=== PATIENT | male | born 1950 | race Caucasian/White ===

== ENCOUNTER → 2018-04-20 07:17 | Outpatient (CLI) | payer BC, SELFPAY ==
[2018-04-20 08:19] LABS: Add Manual Diff / Slide Review NO; Basophils Percent Auto 0.2 % (0-2); Eosinophils Percent Auto 0.2 % (2-4); Hematocrit 37.5 % (41-53); Hemoglobin 13.6 g/dL (13.5-17.5); Lymphocytes Percent Auto 20.6 % (25-40); Mean Corpuscular HGB Conc 36.3 % (30-36); Monocytes Percent Auto 17.6 % (3-14); Neutrophils Absolute Auto 1700 /uL (3000-5900); Neutrophils Percent Auto 61.4 % (50-75); Platelet Count 109 X10^3/uL (150-400); Red Blood Cell Count 4.12 X10^6/uL (4.5-5.9); Red Cell Distribution Width 15.5 % (11.6-14.8); White Blood Cell Count 2.7 X10^3/uL (4.5-11.0)
[2018-04-20 08:53] LABS: Alanine Aminotransferase 26 IU/L (21-72); Albumin 3.9 g/dL (3.5-5.0); Albumin Globulin Ratio 1.4 (1.0-2.8); Alkaline Phosphatase 61 U/L (38-126); Aspartate Aminotransferase 24 IU/L (17-59); BUN Creatinine Ratio 18.9 (6-22); Blood Urea Nitrogen 17 mg/dL (9-20); Calcium 9.2 mg/dL (8.4-10.2); Carbon Dioxide 30 mmol/L (22-32); Chloride 102 mmol/L (98-107); Estimated Glomerular Filt Rate > 60.0 mL/min (>60); Globulin 2.8 g/dL (1.7-4.1); Glucose 94 mg/dL (80-110); HEMOLYSIS < 15 (0-50); Potassium 5.2 mmol/L (3.4-5.1); Sodium 140 mmol/L (137-145); Total Protein 6.7 g/dL (6.3-8.2)
== END ==
PROVIDERS: Family Provider Internal Medicine; PCP Internal Medicine; Visit Provider Internal Medicine Hematology & Oncology
DX: C91.10 Chronic lymphocytic leukemia of B-cell type not having achieved remission (principal)
CPT/HCPCS: 36415; 80053; 85025

== ENCOUNTER → 2018-05-11 06:42 | Outpatient (CLI) | payer BC, SELFPAY ==
[2018-05-11 08:59] LABS: Add Manual Diff / Slide Review NO; Basophils Percent Auto 0.2 % (0-2); Eosinophils Percent Auto 1.5 % (2-4); Hematocrit 38.9 % (41-53); Hemoglobin 13.9 g/dL (13.5-17.5); Lymphocytes Percent Auto 35.5 % (25-40); Mean Corpuscular HGB Conc 35.7 % (30-36); Mean Corpuscular Volume 92.4 fL (80-100); Monocytes Percent Auto 14.6 % (3-14); Neutrophils Absolute Auto 1400 /uL (3000-5900); Neutrophils Percent Auto 48.2 % (50-75); Platelet Count 97 X10^3/uL (150-400); Red Blood Cell Count 4.21 X10^6/uL (4.5-5.9); Red Cell Distribution Width 14.9 % (11.6-14.8); White Blood Cell Count 2.8 X10^3/uL (4.5-11.0)
[2018-05-11 09:38] LABS: Alanine Aminotransferase 21 IU/L (21-72); Albumin 4.1 g/dL (3.5-5.0); Albumin Globulin Ratio 1.3 (1.0-2.8); Alkaline Phosphatase 68 U/L (38-126); Aspartate Aminotransferase 27 IU/L (17-59); Bilirubin Total 0.7 mg/dL (0.2-1.3); Blood Urea Nitrogen 18 mg/dL (9-20); Calcium 8.9 mg/dL (8.4-10.2); Carbon Dioxide 27 mmol/L (22-32); Chloride 102 mmol/L (98-107); Estimated Glomerular Filt Rate > 60.0 mL/min (>60); Globulin 3.1 g/dL (1.7-4.1); Glucose 92 mg/dL (80-110); HEMOLYSIS < 15 (0-50); Potassium 4.3 mmol/L (3.4-5.1); Sodium 139 mmol/L (137-145); Total Protein 7.2 g/dL (6.3-8.2)
== END ==
PROVIDERS: PCP Internal Medicine; Visit Provider Internal Medicine Hematology & Oncology
DX: C91.10 Chronic lymphocytic leukemia of B-cell type not having achieved remission (principal)
CPT/HCPCS: 36415; 80053; 85025

== ENCOUNTER → 2018-05-18 07:49 | Outpatient (CLI) | payer BC, SELFPAY ==
[2018-05-18 08:15] LABS: Add Manual Diff / Slide Review NO; Basophils Percent Auto 0.3 % (0-2); Eosinophils Percent Auto 1.4 % (2-4); Hematocrit 37.1 % (41-53); Hemoglobin 13.6 g/dL (13.5-17.5); Lymphocytes Percent Auto 36.1 % (25-40); Mean Corpuscular HGB Conc 36.7 % (30-36); Mean Corpuscular Hemoglobin 33.6 PG (26-34); Mean Corpuscular Volume 91.7 fL (80-100); Monocytes Percent Auto 15.8 % (3-14); Neutrophils Absolute Auto 1300 /uL (3000-5900); Neutrophils Percent Auto 46.4 % (50-75); Platelet Count 95 X10^3/uL (150-400); Red Blood Cell Count 4.04 X10^6/uL (4.5-5.9); Red Cell Distribution Width 14.8 % (11.6-14.8); White Blood Cell Count 2.7 X10^3/uL (4.5-11.0)
[2018-05-18 08:56] LABS: Alanine Aminotransferase 19 IU/L (21-72); Albumin 3.9 g/dL (3.5-5.0); Albumin Globulin Ratio 1.1 (1.0-2.8); Alkaline Phosphatase 56 U/L (38-126); Aspartate Aminotransferase 22 IU/L (17-59); BUN Creatinine Ratio 16.7 (6-22); Bilirubin Total 0.8 mg/dL (0.2-1.3); Blood Urea Nitrogen 15 mg/dL (9-20); Carbon Dioxide 27 mmol/L (22-32); Chloride 104 mmol/L (98-107); Estimated Glomerular Filt Rate > 60.0 mL/min (>60); Globulin 3.4 g/dL (1.7-4.1); Glucose 84 mg/dL (80-110); HEMOLYSIS < 15 (0-50); Potassium 4.2 mmol/L (3.4-5.1); Sodium 140 mmol/L (137-145); Total Protein 7.3 g/dL (6.3-8.2)
== END ==
PROVIDERS: PCP Internal Medicine; Visit Provider Internal Medicine Hematology & Oncology
DX: C91.10 Chronic lymphocytic leukemia of B-cell type not having achieved remission (principal)
CPT/HCPCS: 36415; 80053; 85025

== ENCOUNTER → 2018-05-25 07:31 | Outpatient (CLI) | payer BC, SELFPAY ==
[2018-05-25 09:19] LABS: Add Manual Diff / Slide Review NO; Basophils Percent Auto 0.1 % (0-2); Eosinophils Percent Auto 3.2 % (2-4); Hematocrit 37.5 % (41-53); Hemoglobin 13.4 g/dL (13.5-17.5); Mean Corpuscular HGB Conc 35.8 % (30-36); Mean Corpuscular Volume 92.2 fL (80-100); Monocytes Percent Auto 8.7 % (3-14); Neutrophils Absolute Auto 1500 /uL (3000-5900); Platelet Count 113 X10^3/uL (150-400); Red Blood Cell Count 4.07 X10^6/uL (4.5-5.9); Red Cell Distribution Width 14.5 % (11.6-14.8); White Blood Cell Count 2.8 X10^3/uL (4.5-11.0)
[2018-05-25 09:48] LABS: Alanine Aminotransferase 24 IU/L (21-72); Albumin 3.9 g/dL (3.5-5.0); Albumin Globulin Ratio 1.2 (1.0-2.8); Alkaline Phosphatase 65 U/L (38-126); Aspartate Aminotransferase 24 IU/L (17-59); Bilirubin Total 0.7 mg/dL (0.2-1.3); Blood Urea Nitrogen 18 mg/dL (9-20); Calcium 9.1 mg/dL (8.4-10.2); Carbon Dioxide 27 mmol/L (22-32); Chloride 103 mmol/L (98-107); Estimated Glomerular Filt Rate > 60.0 mL/min (>60); Globulin 3.2 g/dL (1.7-4.1); Glucose 89 mg/dL (80-110); HEMOLYSIS < 15 (0-50); Potassium 4.8 mmol/L (3.4-5.1); Sodium 140 mmol/L (137-145); Total Protein 7.1 g/dL (6.3-8.2)
== END ==
PROVIDERS: Family Provider Internal Medicine; PCP Internal Medicine; Visit Provider Internal Medicine Hematology & Oncology
DX: C91.10 Chronic lymphocytic leukemia of B-cell type not having achieved remission (principal)
CPT/HCPCS: 36415; 80053; 85025

== ENCOUNTER → 2018-06-22 06:54 | Outpatient (CLI) | payer BC, SELFPAY ==
[2018-06-22 07:43] LABS: Add Manual Diff / Slide Review NO; Basophils Percent Auto 0.2 % (0-2); Eosinophils Percent Auto 0.5 % (2-4); Hemoglobin 13.6 g/dL (13.5-17.5); Lymphocytes Percent Auto 38.6 % (25-40); Mean Corpuscular HGB Conc 35.9 % (30-36); Mean Corpuscular Hemoglobin 33.5 PG (26-34); Mean Corpuscular Volume 93.3 fL (80-100); Monocytes Percent Auto 12.7 % (3-14); Neutrophils Absolute Auto 1300 /uL (3000-5900); Platelet Count 109 X10^3/uL (150-400); Red Blood Cell Count 4.07 X10^6/uL (4.5-5.9); Red Cell Distribution Width 14.9 % (11.6-14.8); White Blood Cell Count 2.8 X10^3/uL (4.5-11.0)
[2018-06-22 07:53] LABS: Alanine Aminotransferase 23 IU/L (21-72); Albumin Globulin Ratio 1.6 (1.0-2.8); Alkaline Phosphatase 72 U/L (38-126); Aspartate Aminotransferase 24 IU/L (17-59); Bilirubin Total 0.5 mg/dL (0.2-1.3); Blood Urea Nitrogen 19 mg/dL (9-20); Carbon Dioxide 29 mmol/L (22-32); Chloride 102 mmol/L (98-107); Estimated Glomerular Filt Rate > 60.0 mL/min (>60); Globulin 2.5 g/dL (1.7-4.1); Glucose 80 mg/dL (80-110); HEMOLYSIS < 15 (0-50); Potassium 4.7 mmol/L (3.4-5.1); Sodium 140 mmol/L (137-145); Total Protein 6.5 g/dL (6.3-8.2)
== END ==
PROVIDERS: Family Provider Internal Medicine; PCP Internal Medicine; Visit Provider Internal Medicine Hematology & Oncology
DX: C91.10 Chronic lymphocytic leukemia of B-cell type not having achieved remission (principal)
CPT/HCPCS: 36415; 80053; 85025

== ENCOUNTER → 2018-06-29 07:08 | Outpatient (CLI) | payer BC, SELFPAY ==
[2018-06-29 08:00] LABS: Add Manual Diff / Slide Review NO; Basophils Percent Auto 0.3 % (0-2); Hematocrit 38.1 % (41-53); Hemoglobin 13.9 g/dL (13.5-17.5); Lymphocytes Percent Auto 13.6 % (25-40); Mean Corpuscular HGB Conc 36.5 % (30-36); Mean Corpuscular Hemoglobin 33.7 PG (26-34); Mean Corpuscular Volume 92.2 fL (80-100); Monocytes Percent Auto 14.1 % (3-14); Neutrophils Absolute Auto 5700 /uL (3000-5900); Platelet Count 100 X10^3/uL (150-400); Red Blood Cell Count 4.13 X10^6/uL (4.5-5.9)
[2018-06-29 08:37] LABS: Alanine Aminotransferase 18 IU/L (21-72); Albumin 3.8 g/dL (3.5-5.0); Albumin Globulin Ratio 1.2 (1.0-2.8); Alkaline Phosphatase 55 U/L (38-126); Aspartate Aminotransferase 16 IU/L (17-59); Bilirubin Total 0.5 mg/dL (0.2-1.3); Blood Urea Nitrogen 15 mg/dL (9-20); Calcium 8.9 mg/dL (8.4-10.2); Carbon Dioxide 29 mmol/L (22-32); Chloride 102 mmol/L (98-107); Estimated Glomerular Filt Rate > 60.0 mL/min (>60); Globulin 3.1 g/dL (1.7-4.1); Glucose 92 mg/dL (80-110); HEMOLYSIS < 15 (0-50); Potassium 4.4 mmol/L (3.4-5.1); Sodium 138 mmol/L (137-145); Total Protein 6.9 g/dL (6.3-8.2)
== END ==
PROVIDERS: Family Provider Internal Medicine; PCP Internal Medicine; Visit Provider Internal Medicine Hematology & Oncology
DX: C91.10 Chronic lymphocytic leukemia of B-cell type not having achieved remission (principal)
CPT/HCPCS: 36415; 80053; 85025

== ENCOUNTER → 2018-07-06 08:34 | Outpatient (CLI) | payer BC, SELFPAY ==
[2018-07-06 09:58] LABS: Add Manual Diff / Slide Review NO; Basophils Percent Auto 0.2 % (0-2); Hematocrit 37.5 % (41-53); Hemoglobin 13.4 g/dL (13.5-17.5); Lymphocytes Percent Auto 22.5 % (25-40); Mean Corpuscular HGB Conc 35.9 % (30-36); Mean Corpuscular Hemoglobin 33.5 PG (26-34); Mean Corpuscular Volume 93.5 fL (80-100); Monocytes Percent Auto 8.2 % (3-14); Neutrophils Absolute Auto 3100 /uL (3000-5900); Neutrophils Percent Auto 68.1 % (50-75); Platelet Count 126 X10^3/uL (150-400); Red Blood Cell Count 4.01 X10^6/uL (4.5-5.9); White Blood Cell Count 4.6 X10^3/uL (4.5-11.0)
[2018-07-06 10:25] LABS: Alanine Aminotransferase 25 IU/L (21-72); Albumin 3.9 g/dL (3.5-5.0); Albumin Globulin Ratio 1.4 (1.0-2.8); Alkaline Phosphatase 62 U/L (38-126); Aspartate Aminotransferase 28 IU/L (17-59); Bilirubin Total 1.1 mg/dL (0.2-1.3); Blood Urea Nitrogen 17 mg/dL (9-20); Carbon Dioxide 27 mmol/L (22-32); Chloride 101 mmol/L (98-107); Estimated Glomerular Filt Rate > 60.0 mL/min (>60); Globulin 2.8 g/dL (1.7-4.1); Glucose 80 mg/dL (80-110); HEMOLYSIS < 15 (0-50); Potassium 4.3 mmol/L (3.4-5.1); Sodium 140 mmol/L (137-145); Total Protein 6.7 g/dL (6.3-8.2)
== END ==
PROVIDERS: Family Provider Internal Medicine; PCP Internal Medicine; Visit Provider Internal Medicine Hematology & Oncology
DX: C91.10 Chronic lymphocytic leukemia of B-cell type not having achieved remission (principal)
CPT/HCPCS: 36415; 80053; 85025

== ENCOUNTER → 2018-07-14 09:04 | Outpatient (CLI) | payer BC, SELFPAY ==
[2018-07-14 11:13] LABS: Add Manual Diff / Slide Review NO; Basophils Percent Auto 0.2 % (0-2); Eosinophils Percent Auto 0.8 % (2-4); Hematocrit 38.1 % (41-53); Hemoglobin 13.6 g/dL (13.5-17.5); Lymphocytes Percent Auto 26.7 % (25-40); Mean Corpuscular HGB Conc 35.7 % (30-36); Mean Corpuscular Hemoglobin 33.3 PG (26-34); Mean Corpuscular Volume 93.3 fL (80-100); Neutrophils Absolute Auto 2000 /uL (3000-5900); Neutrophils Percent Auto 62.3 % (50-75); Platelet Count 119 X10^3/uL (150-400); Red Blood Cell Count 4.08 X10^6/uL (4.5-5.9); Red Cell Distribution Width 15.4 % (11.6-14.8); White Blood Cell Count 3.1 X10^3/uL (4.5-11.0)
[2018-07-14 11:40] LABS: Alanine Aminotransferase 26 IU/L (21-72); Albumin 4.1 g/dL (3.5-5.0); Albumin Globulin Ratio 1.6 (1.0-2.8); Alkaline Phosphatase 61 U/L (38-126); Aspartate Aminotransferase 30 IU/L (17-59); BUN Creatinine Ratio 13.6 (6-22); Bilirubin Total 0.8 mg/dL (0.2-1.3); Blood Urea Nitrogen 15 mg/dL (9-20); Calcium 9.2 mg/dL (8.4-10.2); Carbon Dioxide 30 mmol/L (22-32); Chloride 104 mmol/L (98-107); Estimated Glomerular Filt Rate > 60.0 mL/min (>60); Globulin 2.5 g/dL (1.7-4.1); Glucose 85 mg/dL (80-110); HEMOLYSIS < 15 (0-50); Potassium 4.7 mmol/L (3.4-5.1); Sodium 143 mmol/L (137-145); Total Protein 6.6 g/dL (6.3-8.2)
== END ==
PROVIDERS: Family Provider Internal Medicine; PCP Internal Medicine; Visit Provider Internal Medicine Hematology & Oncology
DX: C91.10 Chronic lymphocytic leukemia of B-cell type not having achieved remission (principal)
CPT/HCPCS: 36415; 80053; 85025

== ENCOUNTER → 2018-08-03 07:37 | Outpatient (CLI) | payer BC, SELFPAY ==
[2018-08-03 09:02] LABS: Add Manual Diff / Slide Review NO; Basophils Percent Auto 0.2 % (0-2); Eosinophils Percent Auto 0.7 % (2-4); Hematocrit 39.5 % (41-53); Hemoglobin 14.1 g/dL (13.5-17.5); Lymphocytes Percent Auto 31.9 % (25-40); Mean Corpuscular HGB Conc 35.7 % (30-36); Mean Corpuscular Hemoglobin 33.3 PG (26-34); Mean Corpuscular Volume 93.2 fL (80-100); Neutrophils Absolute Auto 1800 /uL (3000-5900); Neutrophils Percent Auto 56.2 % (50-75); Platelet Count 109 X10^3/uL (150-400); Red Blood Cell Count 4.24 X10^6/uL (4.5-5.9); Red Cell Distribution Width 14.7 % (11.6-14.8); White Blood Cell Count 3.3 X10^3/uL (4.5-11.0)
[2018-08-03 09:06] LABS: Alanine Aminotransferase 19 IU/L (21-72); Albumin 4.3 g/dL (3.5-5.0); Albumin Globulin Ratio 1.6 (1.0-2.8); Alkaline Phosphatase 56 U/L (38-126); Aspartate Aminotransferase 28 IU/L (17-59); Bilirubin Total 0.9 mg/dL (0.2-1.3); Blood Urea Nitrogen 16 mg/dL (9-20); Calcium 9.3 mg/dL (8.4-10.2); Carbon Dioxide 29 mmol/L (22-32); Chloride 104 mmol/L (98-107); Estimated Glomerular Filt Rate > 60.0 mL/min (>60); Globulin 2.7 g/dL (1.7-4.1); Glucose 104 mg/dL (80-110); HEMOLYSIS < 15 (0-50); Potassium 4.8 mmol/L (3.4-5.1); Sodium 142 mmol/L (137-145)
== END ==
PROVIDERS: PCP Internal Medicine; Visit Provider Internal Medicine Hematology & Oncology
DX: C91.10 Chronic lymphocytic leukemia of B-cell type not having achieved remission (principal)
CPT/HCPCS: 36415; 80053; 85025

== ENCOUNTER → 2018-08-21 10:10 | Outpatient (CLI) | payer BC, SELFPAY ==
[2018-08-21 10:43] LABS: Add Manual Diff / Slide Review NO; Basophils Percent Auto 0.2 % (0-2); Eosinophils Percent Auto 0.4 % (2-4); Hematocrit 37.3 % (41-53); Hemoglobin 13.4 g/dL (13.5-17.5); Lymphocytes Percent Auto 31.5 % (25-40); Mean Corpuscular HGB Conc 35.8 % (30-36); Mean Corpuscular Hemoglobin 33.3 PG (26-34); Mean Corpuscular Volume 92.9 fL (80-100); Monocytes Percent Auto 9.1 % (3-14); Neutrophils Absolute Auto 2200 /uL (3000-5900); Neutrophils Percent Auto 58.8 % (50-75); Platelet Count 110 X10^3/uL (150-400); Red Blood Cell Count 4.02 X10^6/uL (4.5-5.9); Red Cell Distribution Width 14.8 % (11.6-14.8); White Blood Cell Count 3.8 X10^3/uL (4.5-11.0)
[2018-08-21 11:01] LABS: Alanine Aminotransferase 25 IU/L (21-72); Albumin 4.2 g/dL (3.5-5.0); Albumin Globulin Ratio 1.5 (1.0-2.8); Alkaline Phosphatase 58 U/L (38-126); Aspartate Aminotransferase 34 IU/L (17-59); BUN Creatinine Ratio 18.9 (6-22); Bilirubin Total 0.8 mg/dL (0.2-1.3); Blood Urea Nitrogen 17 mg/dL (9-20); Calcium 9.1 mg/dL (8.4-10.2); Carbon Dioxide 26 mmol/L (22-32); Chloride 103 mmol/L (98-107); Estimated Glomerular Filt Rate > 60.0 mL/min (>60); Globulin 2.8 g/dL (1.7-4.1); Glucose 88 mg/dL (80-110); HEMOLYSIS < 15 (0-50); Potassium 4.6 mmol/L (3.4-5.1); Sodium 138 mmol/L (137-145)
== END ==
PROVIDERS: Family Provider Internal Medicine; PCP Internal Medicine; Visit Provider Internal Medicine Hematology & Oncology
DX: C91.10 Chronic lymphocytic leukemia of B-cell type not having achieved remission (principal)
CPT/HCPCS: 36415; 80053; 85025

== ENCOUNTER → 2018-09-21 09:33 | Outpatient (CLI) | payer BC, SELFPAY ==
[2018-09-21 10:05] LABS: Add Manual Diff / Slide Review NO; Basophils Percent Auto 0.3 % (0-2); Eosinophils Percent Auto 0.9 % (2-4); Hematocrit 38.1 % (41-53); Hemoglobin 13.7 g/dL (13.5-17.5); Lymphocytes Percent Auto 25.1 % (25-40); Monocytes Percent Auto 13.5 % (3-14); Neutrophils Absolute Auto 2800 /uL (3000-5900); Neutrophils Percent Auto 60.2 % (50-75); Platelet Count 125 X10^3/uL (150-400); Red Blood Cell Count 4.07 X10^6/uL (4.5-5.9); White Blood Cell Count 4.6 X10^3/uL (4.5-11.0)
[2018-09-21 10:15] LABS: Alanine Aminotransferase 24 IU/L (21-72); Albumin 4.4 g/dL (3.5-5.0); Albumin Globulin Ratio 1.6 (1.0-2.8); Alkaline Phosphatase 68 U/L (38-126); Aspartate Aminotransferase 27 IU/L (17-59); BUN Creatinine Ratio 18.9 (6-22); Bilirubin Total 0.9 mg/dL (0.2-1.3); Blood Urea Nitrogen 17 mg/dL (9-20); Calcium 9.3 mg/dL (8.4-10.2); Carbon Dioxide 28 mmol/L (22-32); Chloride 102 mmol/L (98-107); Estimated Glomerular Filt Rate > 60.0 mL/min (>60); Globulin 2.7 g/dL (1.7-4.1); Glucose 97 mg/dL (80-110); HEMOLYSIS < 15 (0-50); Potassium 4.4 mmol/L (3.4-5.1); Sodium 142 mmol/L (137-145); Total Protein 7.1 g/dL (6.3-8.2)
[2018-09-21 10:50] LABS: Mean Corpuscular HGB Conc 35.3 % (30-36); Mean Corpuscular Hemoglobin 33.2 PG (26-34); Mean Corpuscular Volume 94.1 fL (80-100); Red Cell Distribution Width 15.4 % (11.6-14.8)
== END ==
PROVIDERS: Family Provider Internal Medicine; PCP Internal Medicine; Visit Provider Internal Medicine Hematology & Oncology
DX: C91.10 Chronic lymphocytic leukemia of B-cell type not having achieved remission (principal)
CPT/HCPCS: 36415; 80053; 85025

== ENCOUNTER → 2018-10-14 07:37 | Outpatient (CLI) | payer BC, SELFPAY ==
[2018-10-14 09:59] LABS: Add Manual Diff / Slide Review NO; Basophils Percent Auto 0.1 % (0-2); Hemoglobin 13.7 g/dL (13.5-17.5); Lymphocytes Percent Auto 28.2 % (25-40); Mean Corpuscular HGB Conc 36.1 % (30-36); Mean Corpuscular Hemoglobin 33.3 PG (26-34); Mean Corpuscular Volume 92.2 fL (80-100); Monocytes Percent Auto 11.3 % (3-14); Neutrophils Absolute Auto 2900 /uL (3000-5900); Neutrophils Percent Auto 58.4 % (50-75); Platelet Count 128 X10^3/uL (150-400); Red Blood Cell Count 4.13 X10^6/uL (4.5-5.9); Red Cell Distribution Width 14.1 % (11.6-14.8); White Blood Cell Count 4.9 X10^3/uL (4.5-11.0)
[2018-10-14 10:19] LABS: Alanine Aminotransferase 26 IU/L (21-72); Albumin 4.3 g/dL (3.5-5.0); Albumin Globulin Ratio 1.6 (1.0-2.8); Alkaline Phosphatase 74 U/L (38-126); Aspartate Aminotransferase 26 IU/L (17-59); BUN Creatinine Ratio 18.9 (6-22); Bilirubin Total 0.8 mg/dL (0.2-1.3); Blood Urea Nitrogen 17 mg/dL (9-20); Calcium 8.9 mg/dL (8.4-10.2); Carbon Dioxide 27 mmol/L (22-32); Chloride 102 mmol/L (98-107); Estimated Glomerular Filt Rate > 60.0 mL/min (>60); Globulin 2.7 g/dL (1.7-4.1); Glucose 83 mg/dL (80-110); HEMOLYSIS < 15 (0-50); Sodium 141 mmol/L (137-145)
== END ==
PROVIDERS: Family Provider Internal Medicine; PCP Internal Medicine; Visit Provider Internal Medicine Hematology & Oncology
DX: C91.10 Chronic lymphocytic leukemia of B-cell type not having achieved remission (principal)
CPT/HCPCS: 36415; 80053; 85025

== ENCOUNTER → 2018-10-28 16:24 | Outpatient (CLI) | payer BC, SELFPAY ==
[2018-10-28 17:06] LABS: Add Manual Diff / Slide Review NO; Basophils Percent Auto 0.2 % (0-2); Hematocrit 36.6 % (41-53); Lymphocytes Percent Auto 30.5 % (25-40); Mean Corpuscular HGB Conc 35.6 % (30-36); Mean Corpuscular Hemoglobin 32.9 PG (26-34); Mean Corpuscular Volume 92.3 fL (80-100); Monocytes Percent Auto 12.3 % (3-14); Neutrophils Absolute Auto 1900 /uL (3000-5900); Platelet Count 135 X10^3/uL (150-400); Red Blood Cell Count 3.96 X10^6/uL (4.5-5.9); White Blood Cell Count 3.4 X10^3/uL (4.5-11.0)
[2018-10-28 17:29] LABS: Alanine Aminotransferase 21 IU/L (21-72); Albumin 4.2 g/dL (3.5-5.0); Albumin Globulin Ratio 1.6 (1.0-2.8); Alkaline Phosphatase 76 U/L (38-126); Aspartate Aminotransferase 22 IU/L (17-59); Bilirubin Total 0.5 mg/dL (0.2-1.3); Blood Urea Nitrogen 18 mg/dL (9-20); Calcium 9.1 mg/dL (8.4-10.2); Carbon Dioxide 28 mmol/L (22-32); Chloride 102 mmol/L (98-107); Estimated Glomerular Filt Rate > 60.0 mL/min (>60); Globulin 2.7 g/dL (1.7-4.1); Glucose 83 mg/dL (80-110); HEMOLYSIS < 15 (0-50); Potassium 4.3 mmol/L (3.4-5.1); Sodium 140 mmol/L (137-145); Total Protein 6.9 g/dL (6.3-8.2)
== END ==
PROVIDERS: Family Provider Internal Medicine; PCP Internal Medicine; Visit Provider Internal Medicine Hematology & Oncology
DX: C91.10 Chronic lymphocytic leukemia of B-cell type not having achieved remission (principal); C80.1 Malignant (primary) neoplasm, unspecified; D64.9 Anemia, unspecified
CPT/HCPCS: 36415; 80053; 85025

== ENCOUNTER → 2018-12-29 07:39 | Outpatient (CLI) | payer BC, SELFPAY ==
[2018-12-29 10:56] LABS: Add Manual Diff / Slide Review NO; Basophils Absolute Auto 0 /uL (0-100); Basophils Percent Auto 0.7 % (0-2); Eosinophils Absolute Auto 0 /uL (0-450); Eosinophils Percent Auto 0.5 % (2-4); Hematocrit 39.1 % (41-53); Hemoglobin 13.9 g/dL (13.5-17.5); Lymphocytes Absolute Auto 1100 /uL (1100-4500); Lymphocytes Percent Auto 35.6 % (25-40); Mean Corpuscular HGB Conc 35.5 % (30-36); Mean Corpuscular Hemoglobin 32.7 PG (26-34); Mean Corpuscular Volume 92.1 fL (80-100); Monocytes Absolute Auto 200 /uL (0-900); Monocytes Percent Auto 6.9 % (3-14); Neutrophils Absolute Auto 1800 /uL (1500-7000); Neutrophils Percent Auto 56.3 % (50-75); Platelet Count 114 X10^3/uL (150-400); Red Blood Cell Count 4.25 X10^6/uL (4.5-5.9); Red Cell Distribution Width 15.2 % (11.6-14.8); White Blood Cell Count 3.1 X10^3/uL (4.5-11.0)
[2018-12-29 11:23] LABS: Alanine Aminotransferase 33 IU/L (21-72); Albumin 4.4 g/dL (3.5-5.0); Albumin Globulin Ratio 1.5 (1.0-2.8); Alkaline Phosphatase 74 U/L (38-126); Aspartate Aminotransferase 29 IU/L (17-59); Bilirubin Total 0.7 mg/dL (0.2-1.3); Blood Urea Nitrogen 18 mg/dL (9-20); Calcium 9.2 mg/dL (8.4-10.2); Carbon Dioxide 29 mmol/L (22-32); Chloride 99 mmol/L (98-107); Estimated Glomerular Filt Rate > 60.0 mL/min (>60); Globulin 2.9 g/dL (1.7-4.1); Glucose 85 mg/dL (80-110); HEMOLYSIS < 15 (0-50); Potassium 4.5 mmol/L (3.4-5.1); Sodium 138 mmol/L (137-145); Total Protein 7.3 g/dL (6.3-8.2)
== END ==
PROVIDERS: Family Provider Internal Medicine; PCP Internal Medicine; Visit Provider Internal Medicine Hematology & Oncology
DX: C91.10 Chronic lymphocytic leukemia of B-cell type not having achieved remission (principal); C83.00 Small cell B-cell lymphoma, unspecified site; D80.1 Nonfamilial hypogammaglobulinemia; D64.9 Anemia, unspecified
CPT/HCPCS: 36415; 80053; 85025

== ENCOUNTER → 2019-05-31 11:49 | Outpatient (CLI) | payer BC, SELFPAY ==
--- NOTE | 2019-05-31 12:14 | DI.RAD.S_ITS ---
PROCEDURE: XR CHEST 2V INDICATIONS: lymphadenopathy TECHNIQUE: 2 views of the chest were acquired. COMPARISON: [facility], , CHEST 2 VIEW, 09/11/2017, 15:32. FINDINGS: Surgical changes and devices: Right Port-A-Cath. Lungs and pleura: Lungs are clear. No pleural effusions or pneumothorax. Mediastinum: Mediastinal contours are normal. Heart size is normal. Bones and chest wall: No suspicious bony abnormalities. Soft tissues appear unremarkable. IMPRESSION: No acute pulmonary process. Dictated by: Shana Tyson M.D. on 05/31/2019 at 15:53 Approved by: Shana Tyson M.D. on 05/31/2019 at 15:53
[2019-05-31 12:31] LABS: Hemoglobin A1C% w Est Avg Glu 4.7 % (4.0-6.0)
[2019-05-31 12:56] LABS: Erythrocyte Sedimentation Rate 14 MM/HR (0-15)
[2019-05-31 13:37] LABS: Alanine Aminotransferase 23 IU/L (21-72); Albumin 4.3 g/dL (3.5-5.0); Albumin Globulin Ratio 1.7 (1.0-2.8); Alkaline Phosphatase 94 U/L (38-126); Aspartate Aminotransferase 27 IU/L (17-59); Bilirubin Total 0.7 mg/dL (0.2-1.3); Blood Urea Nitrogen 18 mg/dL (9-20); C-Reactive Protein Quant 1.1 mg/dL (<1.0); Calcium 9.1 mg/dL (8.4-10.2); Carbon Dioxide 24 mmol/L (22-32); Chloride 106 mmol/L (98-107); Estimated Glomerular Filt Rate > 60.0 mL/min (>60); Globulin 2.6 g/dL (1.7-4.1); Glucose 88 mg/dL (80-110); HEMOLYSIS < 15 (0-50); Potassium 4.4 mmol/L (3.4-5.1); Sodium 141 mmol/L (137-145); Total Protein 6.9 g/dL (6.3-8.2)
[2019-05-31 13:46] LABS: Free T4, Direct Thyroxine 0.88 ng/dL (0.78-2.19)
[2019-05-31 14:00] LABS: Thyroid Stimulating Hormone 2.55 uIU/mL (0.47-4.68)
[2019-05-31 14:21] LABS: Vitamin B12 > 1000 pg/mL (239-931)
[2019-06-02 22:40] LABS: Albumin 4.1 g/dL (3.8-4.8); Alpha 1 Globulin 0.3 g/dL (0.2-0.3); Alpha 2 Globulin 0.8 g/dL (0.5-0.9); Beta 1 Globulin 0.3 g/dL (0.4-0.6); Gamma Globulin 0.9 g/dL (0.8-1.7); Protein, Total 6.7 g/dL (6.1-8.1)
== END ==
PROVIDERS: PCP Internal Medicine; Visit Provider Internal Medicine
DX: C91.90 Lymphoid leukemia, unspecified not having achieved remission (principal); S04.30XA Injury of trigeminal nerve, unspecified side, initial encounter; R59.1 Generalized enlarged lymph nodes
CPT/HCPCS: 36415; 71046; 80053; 82607; 83036; 84155; 84165; 84439; 84443; 85651; 86140; 86226

== ENCOUNTER → 2019-06-08 12:57 | Outpatient (CLI) | payer BC, SELFPAY ==
--- NOTE | 2019-06-08 12:58 | DI.MRI.S_ITS ---
PROCEDURE: MR HEAD/BRAIN WO/W CON INDICATIONS: left trigeminal disease TECHNIQUE: Noncontrast sagittal T1 spin echo, axial T2 fast spin echo, axial FLAIR, axial gradient echo, axial diffusion and ADC through the brain. Axial/sagittal/coronal 3-D CISS, thin-slice axial T1 spin echo with fat saturation through the skull base. After the administration of contrast, axial and coronal thin-slice T1 spin echo with fat saturation through the skull base, axial T1 spin echo with fat saturation through the brain. COMPARISON: None. FINDINGS: Image quality: Excellent. Trigeminal nerves: Trigeminal nerves follow a normal course, abnormal contour and normal signal. No abnormal signal or postcontrast enhancement identified along the course of the trigeminal nerves or trigeminal nerve divisions. No abnormal mass identified along the course of the trigeminal nerves or trigeminal nerve divisions. No vascular loop identified along the cisternal segments of the trigeminal nerves. Cavernous sinus demonstrates normal postcontrast enhancement. CSF spaces: Ventricles are normal in size and shape. No extra-axial fluid collections. Basal cisterns are patent. Brain: No intracranial bleeds or mass effects. No abnormal intracranial enhancement. Diffusion weighted images show no acute ischemic insults. There is mild, diffuse cerebral volume loss. There are minimal periventricular and subcortical white matter chronic microvascular ischemic changes. Wang-white matter interface is intact. Brainstem is normal. Normal intravascular flow voids are present. Skull and face: Calvarial marrow signal is normal. Orbits appear normal. Sinuses: Sinuses and mastoids appear clear. IMPRESSION: 1. No acute intracranial disease process. 2. No abnormal mass or suspicious postcontrast enhancement. 3. Mild, diffuse cerebral volume loss. 4. Minimal periventricular and subcortical white matter chronic microvascular ischemic changes. Dictated by: Katie Painting MD, PhD on 06/08/2019 at 15:39 Approved by: Katie Painting MD, PhD on 06/08/2019 at 15:46
== END ==
PROVIDERS: PCP Internal Medicine; Visit Provider Internal Medicine
DX: C91.90 Lymphoid leukemia, unspecified not having achieved remission (principal); G50.9 Disorder of trigeminal nerve, unspecified
CPT/HCPCS: 70553; A9579

== ENCOUNTER → 2019-09-13 10:08 | Outpatient (CLI) | payer BC, SELFPAY ==
[2019-09-13 11:16] LABS: Add Manual Diff / Slide Review NO; Basophils Absolute Auto 0 /uL (0-100); Basophils Percent Auto 0.4 % (0-2); Eosinophils Absolute Auto 300 /uL (0-450); Eosinophils Percent Auto 5.7 % (2-4); Hematocrit 37.5 % (41-53); Hemoglobin 13.4 g/dL (13.5-17.5); Lymphocytes Absolute Auto 1700 /uL (1100-4500); Lymphocytes Percent Auto 30.9 % (25-40); Mean Corpuscular HGB Conc 35.7 % (30-36); Mean Corpuscular Hemoglobin 32.7 PG (26-34); Mean Corpuscular Volume 91.7 fL (80-100); Monocytes Absolute Auto 500 /uL (0-900); Monocytes Percent Auto 8.9 % (3-14); Neutrophils Absolute Auto 3000 /uL (1500-7000); Neutrophils Percent Auto 54.1 % (50-75); Platelet Count 138 X10^3/uL (150-400); Red Blood Cell Count 4.09 X10^6/uL (4.5-5.9); Red Cell Distribution Width 15.5 % (11.6-14.8); White Blood Cell Count 5.6 X10^3/uL (4.5-11.0)
[2019-09-13 11:24] LABS: Alanine Aminotransferase 22 IU/L (21-72); Albumin 4.4 g/dL (3.5-5.0); Albumin Globulin Ratio 1.6 (1.0-2.8); Alkaline Phosphatase 88 U/L (38-126); Aspartate Aminotransferase 27 IU/L (17-59); BUN Creatinine Ratio 18.9 (6-22); Bilirubin Total 0.7 mg/dL (0.2-1.3); Blood Urea Nitrogen 17 mg/dL (9-20); Carbon Dioxide 27 mmol/L (22-32); Chloride 102 mmol/L (98-107); Estimated Glomerular Filt Rate > 60.0 mL/min (>60); Globulin 2.7 g/dL (1.7-4.1); Glucose 100 mg/dL (80-110); HEMOLYSIS < 15 (0-50); Potassium 4.4 mmol/L (3.4-5.1); Sodium 139 mmol/L (137-145); Total Protein 7.1 g/dL (6.3-8.2)
== END ==
PROVIDERS: PCP Internal Medicine; Visit Provider Internal Medicine Hematology & Oncology
DX: C91.10 Chronic lymphocytic leukemia of B-cell type not having achieved remission (principal); C83.00 Small cell B-cell lymphoma, unspecified site; D80.1 Nonfamilial hypogammaglobulinemia; D64.9 Anemia, unspecified; C91.90 Lymphoid leukemia, unspecified not having achieved remission
CPT/HCPCS: 36415; 80053; 85025

== ENCOUNTER → 2019-12-15 08:30 | Oncology outpatient (ONC) | payer BC, SELFPAY ==
[2018-10-14 09:08] VITALS: BP 122/66; PULSE 68; RESP 16; TEMP 37.2; O2SAT 95
[2018-10-14] MEDS: ISOOSMOTIC VEHICLE IV (09:36)
[2018-10-14] MEDS: IMMUNE GLOBULIN IV (09:36)
--- NOTE | 2018-10-14 09:36 | PC.NURSE ---
Spoke with patient and Chi at Dr. Velez's office regarding site of care policy for IVIG. Per [employer] [place]-patient can have two doses within 30 days of IVIG at a hospital based infusion clinic, then patient needs to be transferred to home infusion or non-hospital based clinic. Faxed copy of policy to Chi and gave copy of policy to patient. Efra Dietrich [facility]ly [facility]
[2018-11-04 09:08] LABS: Add Manual Diff / Slide Review NO; Basophils Percent Auto 0.5 % (0-2); Eosinophils Percent Auto 0.6 % (2-4); Hematocrit 38.4 % (41-53); Hemoglobin 13.5 g/dL (13.5-17.5); Lymphocytes Percent Auto 23.3 % (25-40); Mean Corpuscular HGB Conc 35.1 % (30-36); Mean Corpuscular Hemoglobin 32.9 PG (26-34); Mean Corpuscular Volume 93.7 fL (80-100); Monocytes Percent Auto 8.7 % (3-14); Neutrophils Absolute Auto 2900 /uL (1500-7000); Neutrophils Percent Auto 66.9 % (50-75); Platelet Count 126 X10^3/uL (150-400); Red Cell Distribution Width 14.3 % (11.6-14.8); White Blood Cell Count 4.3 X10^3/uL (4.5-11.0)
[2018-11-04] MEDS: ISOOSMOTIC VEHICLE IV (09:18)
[2018-11-04] MEDS: IMMUNE GLOBULIN IV (09:18)
[2018-11-04 09:48] VITALS: BP 132/81; PULSE 55; RESP 16; TEMP 36.5; O2SAT 97
[2018-12-01 09:20] LABS: Add Manual Diff / Slide Review NO; Basophils Absolute Auto 0 /uL (0-100); Basophils Percent Auto 0.5 % (0-2); Eosinophils Absolute Auto 0 /uL (0-450); Eosinophils Percent Auto 0.7 % (2-4); Hematocrit 39.2 % (41-53); Hemoglobin 13.7 g/dL (13.5-17.5); Lymphocytes Absolute Auto 1200 /uL (1100-4500); Lymphocytes Percent Auto 35.4 % (25-40); Mean Corpuscular Hemoglobin 32.8 PG (26-34); Mean Corpuscular Volume 93.7 fL (80-100); Monocytes Absolute Auto 300 /uL (0-900); Monocytes Percent Auto 10.1 % (3-14); Neutrophils Absolute Auto 1800 /uL (1500-7000); Neutrophils Percent Auto 53.3 % (50-75); Platelet Count 105 X10^3/uL (150-400); Red Blood Cell Count 4.19 X10^6/uL (4.5-5.9); Red Cell Distribution Width 14.9 % (11.6-14.8); White Blood Cell Count 3.5 X10^3/uL (4.5-11.0)
[2018-12-01 09:34] LABS: Alanine Aminotransferase 33 IU/L (21-72); Albumin 4.3 g/dL (3.5-5.0); Albumin Globulin Ratio 1.5 (1.0-2.8); Alkaline Phosphatase 68 U/L (38-126); Aspartate Aminotransferase 27 IU/L (17-59); BUN Creatinine Ratio 23.3 (6-22); Bilirubin Total 0.8 mg/dL (0.2-1.3); Blood Urea Nitrogen 21 mg/dL (9-20); Carbon Dioxide 25 mmol/L (22-32); Chloride 105 mmol/L (98-107); Estimated Glomerular Filt Rate > 60.0 mL/min (>60); Globulin 2.8 g/dL (1.7-4.1); Glucose 93 mg/dL (80-110); HEMOLYSIS < 15 (0-50); Potassium 4.5 mmol/L (3.4-5.1); Sodium 139 mmol/L (137-145); Total Protein 7.1 g/dL (6.3-8.2)
[2018-12-01] MEDS: IMMUNE GLOBULIN IV (10:04)
[2018-12-01] MEDS: ISOOSMOTIC VEHICLE IV (10:04)
[2018-12-29 08:52] VITALS: BP 126/72; PULSE 58; RESP 16; TEMP 36.6; O2SAT 98
[2018-12-29] MEDS: IMMUNE GLOBULIN IV (09:04)
[2018-12-29] MEDS: ISOOSMOTIC VEHICLE IV (09:04)
--- NOTE | 2018-12-29 12:53 | PC.NURSE ---
IVIG titration was at 480/hour following 240/hour for at least 30 minutes before raising rate to 600ml/hour. This titration step was not entered on JAN. Patient tolerated total infusion with no signs or symptoms of reaction.
[2019-02-02 09:14] LABS: Add Manual Diff / Slide Review NO; Basophils Absolute Auto 0 /uL (0-100); Basophils Percent Auto 0.5 % (0-2); Eosinophils Absolute Auto 0 /uL (0-450); Eosinophils Percent Auto 1.6 % (2-4); Hematocrit 37.8 % (41-53); Hemoglobin 13.4 g/dL (13.5-17.5); Lymphocytes Absolute Auto 1000 /uL (1100-4500); Lymphocytes Percent Auto 33.5 % (25-40); Mean Corpuscular HGB Conc 35.4 % (30-36); Mean Corpuscular Hemoglobin 33.3 PG (26-34); Mean Corpuscular Volume 93.9 fL (80-100); Monocytes Absolute Auto 400 /uL (0-900); Monocytes Percent Auto 12.1 % (3-14); Neutrophils Absolute Auto 1500 /uL (1500-7000); Neutrophils Percent Auto 52.3 % (50-75); Platelet Count 85 X10^3/uL (150-400); Red Blood Cell Count 4.03 X10^6/uL (4.5-5.9); Red Cell Distribution Width 15.9 % (11.6-14.8)
[2019-02-02 09:26] LABS: Alanine Aminotransferase 27 IU/L (21-72); Albumin 4.4 g/dL (3.5-5.0); Albumin Globulin Ratio 1.6 (1.0-2.8); Alkaline Phosphatase 63 U/L (38-126); Aspartate Aminotransferase 28 IU/L (17-59); BUN Creatinine Ratio 18.9 (6-22); Bilirubin Total 0.8 mg/dL (0.2-1.3); Blood Urea Nitrogen 17 mg/dL (9-20); Carbon Dioxide 28 mmol/L (22-32); Chloride 101 mmol/L (98-107); Estimated Glomerular Filt Rate > 60.0 mL/min (>60); Globulin 2.7 g/dL (1.7-4.1); Glucose 94 mg/dL (80-110); HEMOLYSIS < 15 (0-50); Potassium 4.4 mmol/L (3.4-5.1); Sodium 139 mmol/L (137-145); Total Protein 7.1 g/dL (6.3-8.2)
[2019-02-02 09:30] VITALS: BP 125/70; PULSE 56; RESP 16; TEMP 36.7
[2019-02-02] MEDS: ISOOSMOTIC VEHICLE IV (09:34)
[2019-02-02] MEDS: IMMUNE GLOBULIN IV (09:34)
[2019-02-02 11:35] VITALS: BP 112/65; PULSE 56; RESP 14
--- NOTE | 2019-02-02 13:01 | PC.NURSE ---
Rashid received IVIG. Increased Q 30 min. to rate of 600mg/hr. Tolerated infusion well.
[2019-02-02 13:02] VITALS: BP 131/65; PULSE 62; RESP 14; TEMP 36.7
[2019-03-16 09:11] LABS: Add Manual Diff / Slide Review NO; Basophils Absolute Auto 0 /uL (0-100); Basophils Percent Auto 0.5 % (0-2); Eosinophils Absolute Auto 0 /uL (0-450); Eosinophils Percent Auto 0.3 % (2-4); Hematocrit 37.8 % (41-53); Hemoglobin 13.4 g/dL (13.5-17.5); Lymphocytes Absolute Auto 1400 /uL (1100-4500); Lymphocytes Percent Auto 39.4 % (25-40); Mean Corpuscular HGB Conc 35.5 % (30-36); Mean Corpuscular Hemoglobin 33.7 PG (26-34); Monocytes Absolute Auto 500 /uL (0-900); Monocytes Percent Auto 14.3 % (3-14); Neutrophils Absolute Auto 1600 /uL (1500-7000); Neutrophils Percent Auto 45.5 % (50-75); Red Blood Cell Count 3.98 X10^6/uL (4.5-5.9); Red Cell Distribution Width 15.1 % (11.6-14.8); White Blood Cell Count 3.6 X10^3/uL (4.5-11.0)
[2019-03-16 09:13] LABS: Platelet Count 46 X10^3/uL (150-400)
[2019-03-16 09:29] LABS: Alanine Aminotransferase 20 IU/L (21-72); Albumin 4.3 g/dL (3.5-5.0); Albumin Globulin Ratio 1.7 (1.0-2.8); Alkaline Phosphatase 67 U/L (38-126); Aspartate Aminotransferase 28 IU/L (17-59); Bilirubin Total 0.8 mg/dL (0.2-1.3); Blood Urea Nitrogen 20 mg/dL (9-20); Calcium 8.8 mg/dL (8.4-10.2); Carbon Dioxide 26 mmol/L (22-32); Chloride 105 mmol/L (98-107); Estimated Glomerular Filt Rate > 60.0 mL/min (>60); Globulin 2.6 g/dL (1.7-4.1); Glucose 92 mg/dL (80-110); HEMOLYSIS < 15 (0-50); Potassium 4.5 mmol/L (3.4-5.1); Sodium 139 mmol/L (137-145); Total Protein 6.9 g/dL (6.3-8.2)
[2019-03-16 09:42] LABS: Anisocytosis 1+; Platelet Estimate Decreased on smear
[2019-03-16] MEDS: ISOOSMOTIC VEHICLE IV (09:52)
[2019-03-16] MEDS: IMMUNE GLOBULIN IV (09:52)
[2019-03-16 11:00] VITALS: BP 123/64; RESP 18; TEMP 36.6
[2019-03-16 13:18] VITALS: BP 143/71; PULSE 66; RESP 16; TEMP 36.6; O2SAT 100
--- NOTE | 2019-04-13 16:27 | ONC.SCHED ---
Patient called trying to get scheduled for IVIG. I found his auth is and he said he was going to get his doctor to renew it. I said I would speak with eZe regarding the medication being here this week should he need to get in this week/auth needed. Zee said it was okay to schedule. I tried calling patient back twice to schedule but no answer, mailbox full.
--- NOTE | 2019-04-27 14:58 | ONC.SCHED ---
Patient is calling his advocate to try and speed up the process of [employer] authorizing [employer]
[2019-05-06 09:46] VITALS: BP 132/66; PULSE 64; RESP 20; TEMP 36.6; O2SAT 98
[2019-05-06] MEDS: IMMUNE GLOBULIN IV (09:59)
[2019-05-06] MEDS: ISOOSMOTIC VEHICLE IV (09:59)
[2019-05-06 11:30] VITALS: BP 137/76; PULSE 95; RESP 16; TEMP 36.1; O2SAT 95
[2019-06-08] MEDS: ISOOSMOTIC VEHICLE IV (09:47)
[2019-06-08] MEDS: IMMUNE GLOBULIN IV (09:47)
[2019-06-29 16:10] VITALS: BP 110/65; PULSE 62; RESP 18; TEMP 36.2; O2SAT 99
--- NOTE | 2019-06-29 17:50 | P.CONONC_ITS ---
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 FCR is in March 2013 through May 2013 2. Bendamustine [place] and Rituxan from February 2014 through May 2014 3. Ibrutinib beginning in June 2014 through March 2017. 4. FCR again from March 2017 through June 2017 5. Venetoclax July of 2017 through May 2019 6. Idelalisib and Rituxan beginning in June 2019 History of present illness: Rashid Gracia is a 68 year old male who is referred by his primary physician for 2nd opinion regarding CLL. The patient has been followed by Dr. Velez who has told the patient that he does not have many standard therapeutic options left. The patient has had a longstanding history of CLL dating back as far as 2012. He has been treated with multiple lines of chemotherapy is detailed above. 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 he recently had evidence of progressive disease on venetoclax and has just started therapy with Rituxan and idelalisib. He started that treatment about 10 days ago. He notes that he has had a reduction in the size of his lymph nodes. There has been some slight improvement in his platelet count and his white count has been stable. He has been tolerating treatment well thus far. He notes that his strength and energy level are good. He is not having any persistent aches or pains. He does have occasional night sweats but no fevers or chills. No shortness of breath or cough. He has not had any unusual bleeding or bruising complications. He is otherwise without complaint today. He has been getting IVIG infections every 3 weeks. He has also been on Leukine for white cell support. He has not had any significant infectious complications. His past medical history is otherwise notable for squamous cell skin cancer. He has otherwise been quite healthy. Family history is noncontributory. Social history: He does not smoke. He works as an insurance counselor. He also has involved in the development of [employer]. CC: Alexis Hyde MD Home Medications and Allergies Home Medications Medication Instructions Recorded Confirmed Type idelalisib [Zydelig] 150 mg PO BID 06/29/19 06/29/19 History immune globulin,gamma(IgG)ifas 06/29/19 History Allergies Allergy/AdvReac Type Severity Reaction Status Date / Time No Known Drug Allergies Allergy Verified 05/31/19 11:16 Medical History - Medical, Surgical, Family History Medical History: Medical History (Updated 06/29/19 @ 17:58 by Alexis Hyde MD) Chronic lymphocytic leukemia (Chronic) Onset Date: 12/02/14 Carpal tunnel syndrome of left wrist (Chronic) Onset Date: 07/09/17 - Social History Smoking Status: Never smoker Review of Systems Constitutional: weight loss, normal activity level Eyes: change in vision Cardiovascular: no chest pain Respiratory: no shortness of breath Gastrointestinal: no change in appetite, no abdominal pain Hematologic/Lymphatic: enlarged lymph nodes Exam Vital signs: Vital Signs Temp Pulse Resp BP Pulse Ox 06/29/19 16:10 97.2 F L 62 18 110/65 99 Intake and Output 06/29/19 06/29/19 06/29/19 07:59 15:59 23:59 Other: Weight 104.6 kg Patient Weight 06/29/19 23:59 Weight 104.6 kg - Constitutional positive no acute distress, positive average body habitus - Routine HEENT Exam Head: Present: normocephalic, atraumatic Eye: Present: EOMI, PERRL. Absent: conjunctival icterus, scleral injection ENT: Present: mucous membranes moist, oropharynx clear - Routine Neck Exam Present: supple. Absent: lymphadenopathy, thyromegaly - Routine Chest/Breast/Axilla Exam Axillae: Absent: lymphadenopathy - Routine Respiratory Exam Present: Clear to auscultation bilaterally. Absent: rales, wheezes - Routine Cardiovascular Exam Present: RRR, S1, S2. Absent: murmur - Routine Abdominal Exam Present: soft, normoactive bowel sounds. Absent: tenderness, organomegaly, mass - Routine Extremities Exam Absent: cyanosis, clubbing, edema - Routine Back/Spine Exam Back/Spine: Absent: vertebral tenderness - Routine Skin Exam Present: intact. Absent: rash - Routine Neurological Exam Present: alert, oriented X3 - Routine Psychiatric Exam Present: normal affect, normal thought process Results - Labs Laboratory Last Values WBC 3.6 X10^3/uL (4.5-11.0) L 03/16/19 09:00 RBC 3.98 X10^6/uL (4.5-5.9) L 03/16/19 09:00 Hgb 13.4 g/dL (13.5-17.5) L 03/16/19 09:00 Hct 37.8 % (41-53) L 03/16/19 09:00 MCV 95.0 fL (80-100) 03/16/19 09:00 MCH 33.7 PG (26-34) 03/16/19 09:00 MCHC 35.5 % (30-36) 03/16/19 09:00 RDW 15.1 % (11.6-14.8) H 03/16/19 09:00 Plt Count 46 X10^3/uL (150-400) L 03/16/19 09:00 Neut % (Auto) 45.5 % (50-75) L 03/16/19 09:00 Lymph % (Auto) 39.4 % (25-40) 03/16/19 09:00 [place] % (Auto) 14.3 % (3-14) H 03/16/19 09:00 Eos % (Auto) 0.3 % (2-4) L 03/16/19 09:00 Baso % (Auto) 0.5 % (0-2) 03/16/19 09:00 Neut # (Auto) 1600 /uL (5872-8231) 03/16/19 09:00 Lymph # (Auto) 1400 /uL (9144-1690) 03/16/19 09:00 [place] # (Auto) 500 /uL (0-900) 03/16/19 09:00 Eos # (Auto) 0 /uL (0-450) 03/16/19 09:00 Baso # (Auto) 0 /uL (0-100) 03/16/19 09:00 Platelet Estimate Decreased on smear 03/16/19 09:00 RBC Morphology See below 03/16/19 09:00 Anisocytosis 1+ H 03/16/19 09:00 Sodium 139 mmol/L (137-145) 03/16/19 09:00 Potassium 4.5 mmol/L (3.4-5.1) 03/16/19 09:00 Chloride 105 mmol/L (98-107) 03/16/19 09:00 Carbon Dioxide 26 mmol/L (22-32) 03/16/19 09:00 BUN 20 mg/dL (9-20) 03/16/19 09:00 Creatinine 1.00 mg/dL (0.66-1.25) 03/16/19 09:00 Estimated GFR > 60.0 mL/min (>60) 03/16/19 09:00 BUN/Creatinine Ratio 20.0 (6-22) 03/16/19 09:00 Glucose 92 mg/dL (80-110) 03/16/19 09:00 Calcium 8.8 mg/dL (8.4-10.2) 03/16/19 09:00 Total Bilirubin 0.8 mg/dL (0.2-1.3) 03/16/19 09:00 AST 28 IU/L (17-59) 03/16/19 09:00 ALT 20 IU/L (21-72) L 03/16/19 09:00 Alkaline Phosphatase 67 U/L (38-126) 03/16/19 09:00 Total Protein 6.9 g/dL (6.3-8.2) 03/16/19 09:00 Albumin 4.3 g/dL (3.5-5.0) 03/16/19 09:00 Globulin 2.6 g/dL (1.7-4.1) 03/16/19 09:00 Albumin/Globulin Ratio 1.7 (1.0-2.8) 03/16/19 09:00 Immunoglobulin A IgG Ab 03/16/19 09:00 Assessment and Plan (1) Chronic lymphocytic leukemia Onset Date: 12/02/14 Current visit: No Status: Chronic 68-year-old man with heavily pretreated CLL with deletion 17p. He appears to be responding to his current regimen and tolerating it well. I recommended that he continue with that as long as it is effective. I do agree that is FDA approved treatment options are limited. His deletion of 17 P predicts poor response to standard chemotherapy such as chop or CVP. I think the response rate is in the 6th or 7th line setting is likely to be low and the duration of that response to be measured in months rather than years. The potential for toxicity as in no way diminished. I think if he is eligible for trials that may be an excellent next step for him. He seems to have an excellent performance status and very little comorbidity. Limiting factor may be his platelet count. We will make referral to [facility] to see if any clinical trials may be an option for him. He has been on IVIG as well as Leukine. He has not had any significant infectious complications will continue these treatments. He does wish to continue received his Rituxan infusions with Dr. Velez. I would be happy to assist in his care with any infusions closer to home if he likes. He will follow up here on an as-needed basis.
[2019-07-20] MEDS: ISOOSMOTIC VEHICLE IV (09:30)
[2019-07-20] MEDS: IMMUNE GLOBULIN IV (09:30)
[2019-07-20 09:33] VITALS: BP 117/68; PULSE 65; RESP 16; TEMP 36.7; O2SAT 98
[2019-07-20 11:35] VITALS: BP 119/62; PULSE 52; RESP 16; TEMP 36.6
[2019-07-20 11:57] VITALS: BP 128/74; PULSE 54; RESP 17; TEMP 36.4
[2019-09-29 09:57] VITALS: BP 117/64; PULSE 67; RESP 18; TEMP 36.7; O2SAT 97
[2019-09-29] MEDS: IMMUNE GLOBULIN IV (10:11)
[2019-09-29] MEDS: ISOOSMOTIC VEHICLE IV (10:11)
--- NOTE | 2019-12-08 15:58 | ONC.SCHED ---
Patient's physician order is . Called Dr. Velez's office to have them fax a new one for his treatment next day. Advised patient that no order has been received as of 3:58 pm todays date. Patient advised he would phone Dr. Velez's office to expedite. I advised patient to call this clinic to make sure orders are received before close of business today to avoid his travel in the a.m. Patient voiced understanding
--- NOTE | 2019-12-08 16:12 | ONC.SCHED ---
Spoke with Dr. Velez's office wherein they advised Dr. Velez does not want to re-issue an order for IVIG at this time as he needs new immunoglobulin results for the patient. The Clinic told me they would get in touch with the patient. Patient called me back and I advised the patient of Dr. Velez's decision. Patient said he would have his Oncologist in [place] fax orders. Patient agrees to keep appointment on calendar with the knowledge that it may not be kept if all documentation is not in order tomorrow a.m.
[2019-12-15 10:00] VITALS: BP 123/70; PULSE 60; RESP 16; TEMP 36.8; O2SAT 97
[2019-12-15] MEDS: IMMUNE GLOBULIN (IVIG) 40 GM in ISOOSMOTIC VEHICLE 0 ML 58 ML IV (10:05)
--- NOTE | 2020-02-07 09:23 | PC.NURSE ---
Spoke with patient this morning (02/06) who is in voluntary and intentional quarantine due to recent trip to [place] and patient being in high risk category for COVID-19. Patient asking to reschedule IVIG treatment. Lashae from scheduling to call patient today to help patient reschedule.
== END ==
PROVIDERS: Family Provider Internal Medicine; PCP Internal Medicine; Referring Provider Internal Medicine Hematology & Oncology
DX: C91.10 Chronic lymphocytic leukemia of B-cell type not having achieved remission (principal)
CPT/HCPCS: 36415; 36592; 70553; 80053; 82784; 85025; 96365; 96366; 96523; 99205; 99215; A9579; J1561; J1572